=== PATIENT | female | born 1960 | race Caucasian/White ===

== ENCOUNTER 2023-07-12 20:13 | Emergency (ER) | payer BC | END 2023-07-12 21:47 | disposition home or self-care (01) | LOC: ERS 20:13 | DX: S00.83XA Contusion of other part of head, initial encounter (principal); S90.811A Abrasion, right foot, initial encounter; M25.531 Pain in right wrist; V87.8XXA Person injured in other specified noncollision transport accidents involving motor vehicle (traffic), initial encounter | CPT/HCPCS: 70486 ==